=== PATIENT | female | born 2005 | race Caucasian/White ===

== ENCOUNTER 2024-04-23 13:22 | Emergency (ER) | payer OTHER, SELFPAY ==
[2024-04-23 13:25] VITALS: BP 130/70; PULSE 87; RESP 16; TEMP 36.9; O2SAT 99; BMI 20.2
--- NOTE | 2024-04-23 13:29 | DI.RAD.S_ITS ---
PROCEDURE: XR HAND RT MIN 3V INDICATIONS: hand injury/pain TECHNIQUE: 3 views of the hand(s) acquired. COMPARISON: None. FINDINGS: Bones: No fractures or dislocations. Carpal bones are normally aligned. No suspicious bony lesions. Soft tissues: No suspicious soft tissue calcifications. IMPRESSION: No acute bony abnormality. Dictated by: Yusef Amor M.D. on 04/23/2024 at 13:55 Approved by: Yusef Amor M.D. on 04/23/2024 at 13:56
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
== END 2024-04-23 14:07 | disposition home or self-care (01) ==
PROVIDERS: Emergency Provider Registered Nurse
DX: S63.656A Sprain of metacarpophalangeal joint of right little finger, initial encounter (principal); W22.8XXA Striking against or struck by other objects, initial encounter
CPT/HCPCS: 73130; 99281; 99283